=== PATIENT | male | born 1970 | race African-American/Black ===

== ENCOUNTER 2019-06-03 03:25 | Emergency (ER) | payer OTHER ==
[~2019-06-03] VITALS: Ht 147.3 cm; Wt 49.9 kg
[2019-06-03 03:35] VITALS: BP 112/72
--- NOTE | 2019-06-03 03:51 | Emergency Room Report ---
History of Present Illness General Chief Complaint: General Complaint Source: Family Member, Medical Record Present Illness HPI Is a 48-year-old male who has mental retardation. Was brought in by the engineering psychologist for left finger pain. She noticed that his nail has some discoloration to it. Unknown trauma. He keep picking at it. Denies any other complaint. This been ongoing for a while. No other injury. No fever chills but no drainage. Allergies: Coded Allergies: No Known Allergies (Unverified , 06/03/19) Patient History Past Medical History: see triage record, old chart reviewed Past Surgical History: none Pertinent Family History: none Social History: Denies: smoking Immunizations: other Reviewed Nursing Documentation: PMH: Agreed; PSxH: Agreed Nursing Documentation-PMH Past Medical History: No History, Except For History Of Psychiatric Problem: Yes - down syndrome Review of Systems Eye: Denies: eye pain, blurred vision ENT: Denies: ear pain, nose congestion, throat swelling Respiratory: Denies: cough, shortness of breath Cardiovascular: Denies: chest pain, palpitations Gastrointestinal: Denies: abdominal pain, diarrhea, nausea, vomiting Musculoskeletal: Denies: back pain, joint pain Skin: Denies: rash Neurological: Denies: headache, numbness Endocrine: Denies: increased thirst, increased urine Hematologic/Lymphatic: Denies: easy bruising All Other Systems: negative except mentioned in HPI Physical Exam Vital Signs Date Time Temp Pulse Resp B/P (MAP) Pulse Ox O2 Delivery O2 Flow Rate FiO2 06/03/19 03:33 99.0 53 18 112/72 (85) 99 Room Air Vitals normal Sp02 EP Interpretation: reviewed, normal General Appearance: well appearing, no apparent distress, alert Head: normocephalic, atraumatic Eyes: bilateral eye PERRL, bilateral eye EOMI ENT: hearing grossly normal, normal pharynx Neck: full range of motion, supple, no meningismus Respiratory: chest non-tender, lungs clear, normal breath sounds Cardiovascular #1: regular rate, rhythm, no murmur Gastrointestinal: normal bowel sounds, non tender, no mass, no organomegaly, no bruit, non-distended Musculoskeletal: back normal, normal range of motion, gait/station normal, other - Left index finger: He has a new nail that is coming out. The discoloration is an old nail that is still attached. About 30% of the new nails coming out already. No evidence of any trauma or infection. Psychiatric: mood/affect normal Medical Decision Making Diagnostic Impression: Primary Impression: Nail avulsion, finger Qualified Codes: S61.309A - Unspecified open wound of unspecified finger with damage to nail, initial encounter ER Course Patient with left index finger fingernail avulsion. The new nail is coming on. I see no evidence of any fungal infection or other infection. Family reassured. Last Vital Signs Date Time Temp Pulse Resp B/P (MAP) Pulse Ox O2 Delivery O2 Flow Rate FiO2 06/03/19 03:33 99.0 53 18 112/72 (85) 99 Room Air Status: unchanged Disposition: HOME, SELF-CARE Condition: Stable Referrals: [facility],REFERRING (PCP) Additional Instructions: Follow-up with your doctor in 7 days as needed. Trim the edges of the nail as it come up. New nail will come out in about 6 months time. Return if worse. Messi Toribio MD Jun 03, 2019 03:51
[2019-06-03 03:55] VITALS: BP 112/72
== END 2019-06-03 03:55 | disposition home or self-care (01) ==
LOC: EMR 03:43
DX: S61.301A Unspecified open wound of left index finger with damage to nail, initial encounter (principal); X58.XXXA Exposure to other specified factors, initial encounter; Y92.9 Unspecified place or not applicable; Q90.9 Down syndrome, unspecified
CPT/HCPCS: 99282

== ENCOUNTER 2019-06-10 18:01 | Emergency (ER) | payer OTHER ==
[~2019-06-10] VITALS: Ht 160 cm; Wt 54.9 kg
[2019-06-10] MEDS ORDERED: VITAMIN D250000 UNI1 ORAL (18:21)
[2019-06-10 18:25] VITALS: BP 126/84
[2019-06-10] MEDS ORDERED: TRIAMCINOLONE A15 G1 TP (18:27)
--- NOTE | 2019-06-10 18:27 | Emergency Room Report ---
History of Present Illness General Chief Complaint: Skin Rash/Abscess Source: Caregiver Present Illness HPI 48-year-old male with history of Down syndrome here with his caregiver due to a pruritic rash on his both hands. According to caregiver patient is self abusive and keeps scratching his hands and complains of pruritus all the time. Eczema is noted on both hands however no signs of infection noted. Denies anaphylaxis, chest pain, shortness of breath, palpitation, and other associated symptoms. Denies contact with new allergens. Has not taken any medication nor has used any creams for symptom relief Allergies: Coded Allergies: No Known Allergies (Unverified , 06/03/19) Patient History Past Medical History: see triage record Past Surgical History: unable to obtain Pertinent Family History: none Immunizations: UTD Reviewed Nursing Documentation: PMH: Agreed; PSxH: Agreed Nursing Documentation-PMH Past Medical History: No History, Except For Review of Systems All Other Systems: negative except mentioned in HPI Physical Exam Vital Signs Date Time Temp Pulse Resp B/P (MAP) Pulse Ox O2 Delivery O2 Flow Rate FiO2 06/10/19 18:17 98.1 73 18 126/84 (98) 99 Room Air Sp02 EP Interpretation: reviewed, normal General Appearance: no apparent distress, alert, GCS 15, non-toxic Head: normocephalic, atraumatic Eyes: bilateral eye normal inspection, bilateral eye PERRL ENT: hearing grossly normal, normal pharynx, no angioedema, normal voice Neck: full range of motion, supple/symm/no masses Respiratory: chest non-tender, lungs clear, normal breath sounds, no rhonchi, no wheezing, speaking full sentences Cardiovascular #1: regular rate, rhythm, no edema, no murmur Cardiovascular #2: 2+ radial (R), 2+ radial (L) Gastrointestinal: normal bowel sounds, non tender, soft, non-distended, no guarding, no rebound Genitourinary: no CVA tenderness Neurologic: alert, motor strength/tone normal, oriented x3, sensory intact, responsive, speech normal Psychiatric: normal inspection, judgement/insight normal Skin: rash - Eczema noted on both hands Lymphatic: no adenopathy Medical Decision Making PA Attestation All my diagnosis and treatment plans were reviewed ad discussed with my supervising physician Dr. Rayo Diagnostic Impression: Primary Impression: Eczema of hand ER Course 48-year-old male with history of Down syndrome here with his caregiver due to a pruritic rash on his both hands. According to caregiver patient is self abusive and keeps scratching his hands and complains of pruritus all the time. Eczema is noted on both hands however no signs of infection noted. Denies anaphylaxis, chest pain, shortness of breath, palpitation, and other associated symptoms. Denies contact with new allergens. Has not taken any medication nor has used any creams for symptom relief Ddx considered but are not limited to: Eczema, scabies, lice, Vital signs: are WNL, pt. is afebrile H&PE are most consistent with: Eczema of both hands ORDERS: Triamcinolone cream ED INTERVENTIONS: None required at this time. DISCHARGE: At this time pt. is stable for d/c to home. Will provide printed patient care instructions, and any necessary prescriptions. Care plan and follow up instructions have been discussed with the patient prior to discharge. Patient to follow-up with primary care provider and possible referral to elementary special education teacher. Last Vital Signs Date Time Temp Pulse Resp B/P (MAP) Pulse Ox O2 Delivery O2 Flow Rate FiO2 06/10/19 18:17 98.1 73 18 126/84 (98) 99 Room Air Disposition: HOME, SELF-CARE Condition: Stable Scripts Triamcinolone Acetonide (Triamcinolone Acetonide 0.5% Cream*) 15 Gm Cream..g. 2 GM TP TID, #15 GM Prov: Sanjay Durant 06/10/19 Patient Instructions: Eczema Additional Instructions: Use cream as been prescribed, follow-up with a elementary special education teacher, if worsening symptoms return to the emergency room Sanjay Durant Jun 10, 2019 18:27
[2019-06-10 18:35] VITALS: BP 126/84
== END 2019-06-10 18:40 | disposition home or self-care (01) ==
LOC: EMR 18:40
DX: L30.9 Dermatitis, unspecified (principal); Q90.9 Down syndrome, unspecified
CPT/HCPCS: 99282